=== PATIENT | female | born 1935 | race Caucasian/White ===

== ENCOUNTER 2021-07-04 15:24 | Emergency (ER) | payer MEDICARE ==
[~2021-07-04 15:24] MED LIST: ASPIRIN EC81 MG PO; CARBIDOPA-LEVO1 EAC1 PO; DESITIN TP; ELIQUIS5 MG PO; LABETALOL HCL100 MG PO; LEVAQUIN500 MG PO; LIPITOR TAB 1010 MG PO; LYRICA25 MG PO; MIRALAX 119 GR119 GM PO; MIRALAX17 GM PO; NITROSTAT0.4 MG SL; PROTONIX40 MG PO; RALOXIFENE HCL60 MG PO; RANEXA500 MG PO; REQUIP1 MG PO; SYNTHROID75 MCG PO; TOLTERODINE TART4 MG PO; TOVIAZ4 MG PO; ULTRAM50 MG PO; VITAMIN D50000 UNIT PO
[2021-07-04 16:18] LABS: HEMOGLOBIN 13.6 gm/dl (12.3-15.3); RED BLOOD COUNT 4.3 M/UL (4.00-5.10); WHITE BLOOD COUNT 8.4 K/UL (4.5-11.0)
[2021-07-04 16:46] LABS: BUN/CREATININE RATIO 17 (0-10)
== END 2021-07-04 19:48 ==
LOC: ER1 15:24
PROVIDERS: Emergency Medicine
DX: N30.00 Acute cystitis without hematuria (principal); E78.5 Hyperlipidemia, unspecified; E11.9 Type 2 diabetes mellitus without complications; Z20.822 Contact with and (suspected) exposure to COVID-19
CPT/HCPCS: 71045; 80053; 81001; 82550; 82553; 83874; 84484; 85025; 87077; 87086; 87186; 93005; 96374; 99285; J0696; U0002

== ENCOUNTER 2022-01-15 00:49 | Emergency (ER) | payer MEDICARE, OTHER ==
[~2022-01-15 00:49] MED LIST changes: -LOVENOX SY60 MG/0.6 SQ
[2022-01-15 01:44] LABS: HEMOGLOBIN 12.7 gm/dl (12.3-15.3); RED BLOOD COUNT 3.94 M/UL (4.00-5.10); WHITE BLOOD COUNT 7.1 K/UL (4.5-11.0)
[2022-01-15 02:16] LABS: BUN/CREATININE RATIO 19 (0-10)
[2022-01-15] MEDS ORDERED: LOVENOX SY60 MG/0.6 SQ (03:38)
== END 2022-01-15 04:38 ==
LOC: ER1 00:49
PROVIDERS: Family Medicine
DX: R79.1 Abnormal coagulation profile (principal); E11.9 Type 2 diabetes mellitus without complications; I10 Essential (primary) hypertension; I25.10 Atherosclerotic heart disease of native coronary artery without angina pectoris; Z86.73 Personal history of transient ischemic attack (TIA), and cerebral infarction without residual deficits; Z88.8 Allergy status to other drugs, medicaments and biological substances; Z91.041 Radiographic dye allergy status
CPT/HCPCS: 0240U; 71045; 80053; 82550; 82553; 84484; 85025; 85379; 93005; 99285; J1650

== ENCOUNTER → 2022-01-15 | Outpatient (CLI) | payer MEDICARE, OTHER ==
[~2022-01-15] MED LIST changes: +LOVENOX SY60 MG/0.6 SQ
== END ==
LOC: NM 11:00 → EXRD 11:00 → NM 11:03
DX: I87.2 Venous insufficiency (chronic) (peripheral) (principal); R91.8 Other nonspecific abnormal finding of lung field
CPT/HCPCS: 93970

== ENCOUNTER 2022-03-29 11:43 | Emergency (ER) | payer MEDICARE, OTHER ==
[~2022-03-29 11:43] MED LIST changes: +LOVENOX SY60 MG/0.6 SQ
[2022-03-29 12:23] LABS: HEMOGLOBIN 11.6 gm/dl (12.3-15.3); RED BLOOD COUNT 3.8 M/UL (4.00-5.10)
[2022-03-29 12:47] LABS: BUN/CREATININE RATIO 18 (0-10)
[2022-03-29] MEDS ORDERED: OMNICEF 300 MG300 MG PO (17:38)
== END 2022-03-29 18:27 | disposition home or self-care (01) ==
LOC: ER1 11:43
PROVIDERS: Emergency Medicine
DX: N39.0 Urinary tract infection, site not specified (principal); I71.9 Aortic aneurysm of unspecified site, without rupture; I10 Essential (primary) hypertension; I25.10 Atherosclerotic heart disease of native coronary artery without angina pectoris
CPT/HCPCS: 71045; 80053; 81001; 82550; 82553; 83605; 83690; 83880; 84484; 85025; 87077; 87086; 87186; 93005; 96374; 96375; 99284; J0696; J1200; J2270; J2405; J2930; Q9967